=== PATIENT | male | born 1950 | race Caucasian/White ===

== ENCOUNTER 2020-09-13 07:04 | Emergency (ER) | payer MEDICARE ==
[2020-09-13] MEDS ORDERED: DICYCLOMINE 10 MG/ML 2 ML AMP IM STA (07:30)
[2020-09-13] MEDS ORDERED: ONDANSETRON 4 MG/2 ML VIAL IVP STA (07:30)
[2020-09-13] MEDS ORDERED: SODIUM CHLORIDE 0.9% 1,000 ML IV STA ×2 (07:30)
[2020-09-13] MEDS ORDERED: PANTOPRAZOLE 40 MG/10 ML VIAL IVP STA (07:30)
--- NOTE | 2020-09-13 07:35 | ED ---
General Adult HPI - General Chief complaint: Nausea/Vomiting/Diarrhea Stated complaint: NVD Time Seen by Provider: 09/13/20 07:10 Source: patient, EMS, RN notes reviewed Mode of arrival: EMS Limitations: no limitations - History of Present Illness Initial comments: Patient is a pleasant 70-year-old male presenting to the emergency Department with vomiting and diarrhea. Onset of symptoms was around 24 hours ago. A carlson has had approximately 8-10 episodes of diarrhea approximately 4 episodes of vomiting. She did have some abdominal cramping however none at this time. No fevers. Patient does question possible bad food he had the night prior to o nset. Patient does have similar episode occur to him once previously many years ago. Patient also has occasional diarrhea once or twice per day every few weeks. - Related Data Previous Rx's Medication Instructions Recorded Dicyclomine [Bentyl] 20 mg PO QID PRN #15 tablet 09/13/20 Ondansetron Odt [Zofran Odt] 4 mg PO Q8HR PRN #10 tab 09/13/20 Allergies Allergy/AdvReac Type Severity Reaction Status Date / Time No Known Allergies Allergy Verified 09/13/20 08:35 Review of Systems ROS Statement: Those systems with pertinent positive or pertinent negative responses have been documented in the HPI. ROS Other: All systems not noted in ROS Statement are negative. Constitutional: Denies: fever Eyes: Denies: eye pain ENT: Denies: ear pain Respiratory: Denies: cough Cardiovascular: Denies: chest pain Endocrine: Denies: fatigue Gastrointestinal: Reports: abdominal pain, nausea, vomiting, diarrhea Genitourinary: Denies: dysuria Musculoskeletal: Denies: back pain Skin: Denies: rash Neurological: Denies: weakness Past Medical History Past Medical History: Chest Pain / Angina History of Any Multi-Drug Resistant Organisms: None Reported Past Surgical History: Appendectomy, Coronary Bypass/CABG, Heart Catheterization, Hernia Repair Past Psychological History: No Psychological Hx Reported Smoking Status: Former smoker Past Alcohol Use History: Occasional Past Drug Use History: None Reported General Exam Limitations: no limitations General appearance: alert, in no apparent distress Head exam: Present: normocephalic Eye exam: Present: normal appearance ENT exam: Present: normal oropharynx Neck exam: Present: normal inspection Respiratory exam: Present: normal lung sounds bilaterally Cardiovascular Exam: Present: regular rate, normal rhythm GI/Abdominal exam: Present: soft, hyperactive bowel sounds. Absent: distended, tenderness, guarding, rebound, rigid, pulsatile mass Extremities exam: Present: normal inspection Neurological exam: Present: alert Psychiatric exam: Present: normal affect, normal mood Skin exam: Present: normal color Course Vital Signs 09/13/20 09/13/20 07:06 07:55 Pulse Rate 77 71 Respiratory 16 18 Rate Blood Pressure 122/72 130/69 O2 Sat by Pulse 97 Oximetry EKG Findings - EKG Comments: EKG Findings:: Sinus rhythm with rate of 73. Prescription block ND 300. QRS 102. QT 398. QTC 438. Normal axis. RSr V1. No acute ST change. Medical Decision Making - Medical Decision Making Patient reevaluated and feeling better. Abdomen soft and nontender. Patient updated on results and need for follow-up. - Lab Data Result diagrams: 09/13/20 07:39 09/13/20 07:39 Lab Results 09/13/20 09/13/20 09/13/20 Range/Units 07:39 07:39 07:39 WBC 9.9 (3.8-10.6) k/uL RBC 4.43 (4.30-5.90) m/uL Hgb 14.7 (13.0-17.5) gm/dL Hct 42.7 (39.0-53.0) % MCV 96.3 (80.0-100.0) fL MCH 33.2 (25.0-35.0) pg MCHC 34.5 (31.0-37.0) g/dL RDW 12.5 (11.5-15.5) % Plt Count 168 (150-450) k/uL MPV 7.7 Neutrophils % 82 % Lymphocytes % 8 % Monocytes % 8 % Eosinophils % 1 % Basophils % 0 % Neutrophils # 8.1 H (1.3-7.7) k/uL Lymphocytes # 0.8 L (1.0-4.8) k/uL Monocytes # 0.8 (0-1.0) k/uL Eosinophils # 0.1 (0-0.7) k/uL Basophils # 0.0 (0-0.2) k/uL Sodium 131 L (137-145) mmol/L Potassium 4.7 (3.5-5.1) mmol/L Chloride 105 (98-107) mmol/L Carbon Dioxide 15 L (22-30) mmol/L Anion Gap 11 mmol/L BUN 28 H (9-20) mg/dL Creatinine 0.87 (0.66-1.25) mg/dL Est GFR (CKD-EPI)AfAm >90 (>60 ml/min/1.73 sqM) Est GFR (CKD-EPI)NonAf 87 (>60 ml/min/1.73 sqM) Glucose 115 H (74-99) mg/dL Calcium 8.7 (8.4-10.2) mg/dL Total Bilirubin 1.3 (0.2-1.3) mg/dL AST 33 (17-59) U/L ALT 27 (4-49) U/L Alkaline Phosphatase 92 (38-126) U/L Total Protein 6.8 (6.3-8.2) g/dL Albumin 4.0 (3.5-5.0) g/dL Amylase 81 (30-110) U/L Lipase 63 (23-300) U/L Urine Color Yellow Urine Appearance Clear (Clear) Urine pH 5.0 (5.0-8.0) Ur Specific [place] 1.018 (1.001-1.035) Urine Protein Negative (Negative) Urine Glucose (UA) Negative (Negative) Urine Ketones 1+ H (Negative) Urine Blood Negative (Negative) Urine Nitrite Negative (Negative) Urine Bilirubin Negative (Negative) Urine Urobilinogen <2.0 (<2.0) mg/dL Ur Leukocyte Esterase Negative (Negative) - Radiology Data Radiology results: image reviewed (Abdominal x-ray shows nonspecific pattern, possible enteritis) Disposition Clinical Impression: Vomiting, Diarrhea Disposition: HOME SELF-CARE Condition: Stable Instructions (If sedation given, give patient instructions): Acute Nausea and Vomiting (ED), Acute Diarrhea (ED) Additional Instructions: Prescriptions have been sent to pharmacy. Please follow-up with primary care physician within the next couple days for recheck. Return for not tolerating fluids, fever, abdominal pain, worsening symptoms or any other concerns. Do not use Bentyl and Imodium together. Prescriptions: Dicyclomine [Bentyl] 20 mg PO QID PRN #15 tablet PRN Reason: Pain Ondansetron Odt [Zofran Odt] 4 mg PO Q8HR PRN #10 tab PRN Reason: Nausea Is patient prescribed a controlled substance at d/c from ED?: No Referrals: Michoacano Liu MD [Primary Care Provider] - 1-2 days Time of Disposition: 08:34
[2020-09-13 07:55] LABS: Basophils % (A) 0 %; Eosinophils # (A) 0.1 k/uL (0-0.7); Eosinophils % (A) 1 %; HCT 42.7 % (39.0-53.0); HGB 14.7 gm/dL (13.0-17.5); Lymphocytes # (A) 0.8 k/uL (1.0-4.8); Lymphocytes % (A) 8 %; MCH 33.2 pg (25.0-35.0); MCHC 34.5 g/dL (31.0-37.0); MCV 96.3 fL (80.0-100.0); Mean Platelet Volume 7.7; Monocytes # (A) 0.8 k/uL (0-1.0); Monocytes % (A) 8 %; Neutrophils # (A) 8.1 k/uL (1.3-7.7); Neutrophils % (A) 82 %; Platelet Count 168 k/uL (150-450); RBC 4.43 m/uL (4.30-5.90); RDW 12.5 % (11.5-15.5); WBC 9.9 k/uL (3.8-10.6)
[2020-09-13 07:57] VITALS: RESP 18
[2020-09-13 08:00] LABS: Appearance,Urine Clear (Clear); Bilirubin,Urine Negative (Negative); Blood,Urine Negative (Negative); Color,Urine Yellow; Glucose,Urine (UA) Negative (Negative); Ketones,Urine 1+ (Negative); Leukocyte Esterase,Urine Negative (Negative); Nitrite,Urine Negative (Negative); Protein,Urine Negative (Negative); Specific Gravity,Urine 1.018 (1.001-1.035); Urobilinogen,Urine <2.0 mg/dL (<2.0)
--- NOTE | 2020-09-13 08:10 | XR ---
EXAMINATION TYPE: XR KUB DATE OF EXAM: 09/13/2020 8:03 AM CLINICAL HISTORY: Diarrhea and vomiting. TECHNIQUE: Two Upright KUB images of the abdomen are obtained. COMPARISON: None. FINDINGS: Gas in slightly prominent small bowel loops in the upper to mid abdomen with scattered air- fluid levels. Single dilated gas-filled small bowel loop in the upper to mid abdomen just left of mid line. Gas noted in nondistended small bowel loops in the lower abdomen and pelvis. Some paucity of co lonic gas with areas of gas seen in nondistended colonic loops along the periphery. Gas seen in nondi stended stomach bubble. Gas seen in nondistended rectum. Partial visualization of overlying sternal wires and mediastinal clips. No free air. Dextroconvex sco liotic curvature centered at L3 level. Vascular calcification and phleboliths left pelvis. IMPRESSION: Overall nonspecific but still favor nonobstructive bowel gas pattern. Possible enteritis.
[2020-09-13 08:14] LABS: ALT 27 U/L (4-49); AST 33 U/L (17-59); African American GFR (CKD) >90 (>60 ml/min/1.73 sqM); Alkaline Phosphatase 92 U/L (38-126); Amylase 81 U/L (30-110); Anion Gap 11 mmol/L; Blood Urea Nitrogen 28 mg/dL (9-20); Calcium 8.7 mg/dL (8.4-10.2); Carbon Dioxide 15 mmol/L (22-30); Chloride 105 mmol/L (98-107); Glucose 115 mg/dL (74-99); Lipase 63 U/L (23-300); Non-African American GFR(CKD) 87 (>60 ml/min/1.73 sqM); Potassium 4.7 mmol/L (3.5-5.1); Sodium 131 mmol/L (137-145); Total Bilirubin 1.3 mg/dL (0.2-1.3); Total Protein 6.8 g/dL (6.3-8.2)
[2020-09-13 08:51] VITALS: BP 115/60; PULSE 65
== END 2020-09-13 08:53 | disposition home or self-care (01) ==
LOC: EC 07:04
DX: R11.2 Nausea with vomiting, unspecified (principal); R19.7 Diarrhea, unspecified; Z90.89 Acquired absence of other organs; Z95.5 Presence of coronary angioplasty implant and graft; Z95.1 Presence of aortocoronary bypass graft; Z87.891 Personal history of nicotine dependence
CPT/HCPCS: 36415; 93005; 80053; 82150; 83690; 85025; 81003; 74018; 99284; 96374; 96375; 96372; 96361; J0500; J2405; C9113

== ENCOUNTER → 2024-11-03 | Outpatient (CLI) | payer MEDICARE ==
--- NOTE | 2024-11-03 19:45 | BD ---
EXAMINATION TYPE: Axial Bone Density DATE OF EXAM: 11/03/2024 CLINICAL HISTORY: 74 years old Male. 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 History of Fracture in Adulthood: yes Secondary Osteoporosis: 1. Type 1 Diabetes: no 2. Hyperthyroidism: no 3. Menopause before 45: n/a 4. Malnutrition: no 5. Chronic liver disease: no Rheumatoid Arthritis: no Current Tobacco Use: no RISK FACTORS HISTORY OF: Hip Fracture (Right/Left): no Spine Fracture: L1 When: July 2024 History of Wrist Fracture: no Surgery to Spine/Hip(right/left)/Wrist (right/left): no When: MEDICATIONS: Thyroid Medications: Levothyroxine How Long: past 10 years Osteoporosis Medications: no EXAM MEASUREMENTS: Bone mineral densitometry was performed using the [employer] System. Bone mineral density about the R hip (g/cm2): 1.024 Bone mineral density about the L hip (g/cm2): 1.025 T Score values are as follows: -----R Neck: -0.1 -----L Neck: -0.7 -----R Total: 0.1 -----L Total: 0.1 Z Score values are as follows: -----R Neck: 1.2 -----L Neck: 0.6 -----R Total: 0.5 -----L Total: 0.5 Baseline Study FRAX%s: The graph provided illustrates a 6.0 % chance for a major osteoporotic fx and a 1.5% chance f or the hips probability for fx in 10 years time. IMPRESSION: Normal (Values between +1 and -1 indicate normal bone mass). Consider repeating this study in 5 year s or sooner if there is some new clinical indication. NOTE: T-SCORE=SD OF THE YOUNG ADULT MEAN. [facility], , 11/03/2024 7:43 PM
== END | disposition home or self-care (01) ==
LOC: RADBDWWP 14:54
PROVIDERS: ATTEND Internal Medicine Geriatric Medicine
DX: M81.0 Age-related osteoporosis without current pathological fracture (principal)
CPT/HCPCS: 77080